=== PATIENT | male | born 1970 | race African-American/Black ===

== ENCOUNTER 2017-06-15 10:54 | Observation (INO) | payer OTHER ==
[2017-06-15] MEDS ORDERED: SODIUM CHLORIDE 0.9% 500 ML IV STA (11:08)
[2017-06-15] MEDS ORDERED: ONDANSETRON 4 MG/2 ML VIAL IVP STA (11:08)
[2017-06-15] MEDS ORDERED: RX INFO: IV CONTRAST WAS GIVEN 1 EACH MISC MISCELLANE PRN (11:08)
[2017-06-15] MEDS ORDERED: DIPH,PERTUS(ACELL)TETVAC-LF 0.5 ML VIAL IM ONE (11:08)
[2017-06-15] MEDS ORDERED: MORPHINE SULFATE 4 MG/ML SYRINGE IVP STA (11:11)
[2017-06-15] MEDS ORDERED: KETAMINE 10 MG/ML 20 ML VIAL IV PRN (11:11)
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
[2017-06-15] MEDS ORDERED: LORazepam 2 MG/ML INJ IV STA (11:36)
--- NOTE | 2017-06-15 12:26 | CT ---
EXAMINATION TYPE: CT ChestAbdPelvis w con DATE OF EXAM: 06/15/2017 COMPARISON: NONE HISTORY: Run over CT DLP: 1303 mGycm Automated exposure control for dose reduction was used. TECHNIQUE: Helical acquisition through the chest, abdomen and pelvis was obtained without oral contra st but following the intravenous administration of 100 mL of Omnipaque 300. The data was formatted i n the axial, coronal and sagittal projections. FINDINGS: There is minimal dependent atelectasis in the dependent portions of the lungs. There is a 1 .6 cm bleb or pneumatocele in the left lung base. There is no evidence of lung contusion or pneumotho rax. There is no significant axillary, mediastinal or hilar adenopathy. There is no pleural or pericardial fluid. The heart is upper limits of normal in size. Within the abdomen, there is significant streak artifact secondary patient's arm position. The liver, spleen and gallbladder appear normal. There is a small hiatal hernia. Both adrenal glands appear normal. Both kidneys demonstrate function and appear morphologically normal. Limited views of the pancreas are unremarkable. There is a 2.5 cm ring calcified lesion adjacent to t he tail of the pancreas. This may relate to previous trauma or inflammation. There is no significant retroperitoneal, iliac or inguinal adenopathy. The bladder is unremarkable. There is no significant diverticular change and there is no radiographic evidence of diverticulitis. The appendix is normal. Small bowel loops are normal. No free air and no free fluid is seen. No pelvic fracture is seen. No spinal fracture is identified. There are old fractures of the left fourth through seventh ribs no acute rib fracture is seen. IMPRESSION: 1. NO ACUTE POSTTRAUMATIC ABNORMALITY. 2. SMALL BLEB OR PNEUMATOCELE LEFT LUNG BASE. 3. RING CALCIFIED LESION ADJACENT TO THE TAIL OF PANCREAS ETIOLOGY OF WHICH IS UNCERTAIN. 4. OLD LEFT-SIDED RIB FRACTURES. 5. SMALL HIATAL HERNIA.
--- NOTE | 2017-06-15 12:34 | CT ---
EXAMINATION TYPE: CT brain estee mckee con DATE OF EXAM: 06/15/2017 COMPARISON: NONE HISTORY: Run over CT DLP: 2266 mGycm Automated exposure control for dose reduction was used. TECHNIQUE: CT scan of the head and cervical spine are performed without contrast. FINDINGS: BRAIN: Central structures are midline. There is no evidence of hydrocephalus. No acute focal lesion, mass effect or midline shift is seen. I do not see evidence of intracranial blood. There is mucoperio steal sinus disease involving both maxillary sinuses. The mastoids are clear. The bony calvarium is i ntact. IMPRESSION: 1. NO ACUTE INTRACRANIAL ABNORMALITY. 2. MILD, BILATERAL MAXILLARY SINUS DISEASE. CERVICAL SPINE: There are emphysematous changes throughout the lungs. There is aneurysmal dilatation of the proximal arch which measures 3.8 cm. Prevertebral soft tissues are otherwise unremarkable. Vertebral body height and alignment are maintained. Atlantoaxial relationships are normal. There is disc space loss and hypertrophic spondylosis most marked at C5-6 but present to lesser exten t C6-7. There is uncovertebral joint disease at this level. No fracture is seen. IMPRESSION: 1. NO ACUTE OSSEOUS LESION. 2. DEGENERATIVE CHANGE. 3. EMPHYSEMATOUS CHANGE. 4. ANEURYSMAL DILATATION OF THE ASCENDING THORACIC AORTA.
[2017-06-15 12:39] LABS: Basophils % (A) 0 %; Eosinophils # (A) 0.1 k/uL (0-0.7); Eosinophils % (A) 1 %; HCT 41.2 % (39.0-53.0); HGB 13.2 gm/dL (13.0-17.5); Lymphocytes # (A) 2.3 k/uL (1.0-4.8); Lymphocytes % (A) 23 %; MCH 32.1 pg (25.0-35.0); MCHC 32.1 g/dL (31.0-37.0); MCV 99.8 fL (80.0-100.0); Macrocytosis Slight; Mean Platelet Volume 7.4; Monocytes # (A) 0.4 k/uL (0-1.0); Monocytes % (A) 4 %; Neutrophils % (A) 70 %; Platelet Count 330 k/uL (150-450); RBC 4.13 m/uL (4.30-5.90); RDW 14.2 % (11.5-15.5)
[2017-06-15 12:52] LABS: INR 1.1 (<1.2)
[2017-06-15 12:54] LABS: Partial Thromboplastin Time 19.4 sec (22.0-30.0)
[2017-06-15 12:56] LABS: ALT 22 U/L (21-72); AST 28 U/L (17-59); Albumin 4.2 g/dL (3.5-5.0); Alkaline Phosphatase 60 U/L (38-126); Anion Gap 18 mmol/L; Blood Urea Nitrogen 8 mg/dL (9-20); Calcium 8.6 mg/dL (8.4-10.2); Carbon Dioxide 23 mmol/L (22-30); Chloride 103 mmol/L (98-107); Glucose 95 mg/dL (74-99); Potassium 4.2 mmol/L (3.5-5.1); Sodium 144 mmol/L (137-145); Total Bilirubin 0.5 mg/dL (0.2-1.3); Total Protein 7.5 g/dL (6.3-8.2)
[2017-06-15 13:02] LABS: Creatine Kinase 244 U/L (55-170)
[2017-06-15 13:15] LABS: Creatine Kinase MB 1.5 ng/mL (0.0-2.4); Troponin I <0.012 ng/mL (0.000-0.034)
[2017-06-15 13:18] LABS: Alcohol 388 mg/dL
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
[2017-06-15] MEDS ORDERED: NALOXONE 0.4 MG/ML 1 ML VIAL IV PRN (15:25)
[2017-06-15] MEDS ORDERED: ACETAMINOPHEN TAB 500 MG TAB PO PRN (15:25)
[2017-06-15] MEDS ORDERED: MORPHINE SULFATE 4 MG/ML SYRINGE IV PRN (15:25)
[2017-06-15] MEDS ORDERED: PHENYTOIN SODIUM INJ 1,000 MG in SODIUM CHLORIDE 0.9% 100 ML IVPB STA (15:33)
[2017-06-15 15:59] LABS: Appearance,Urine Clear (Clear); Bilirubin,Urine Negative (Negative); Blood,Urine Trace (Negative); Color,Urine Yellow; Glucose,Urine (UA) Negative (Negative); Ketones,Urine Trace (Negative); Leukocyte Esterase,Urine Negative (Negative); Mucus,Urine Rare /hpf; Nitrite,Urine Negative (Negative); PH, Urine 5.5 (5.0-8.0); Protein,Urine Trace (Negative); RBC,Urine <1 /hpf (0-5); Urobilinogen,Urine <2.0 mg/dL (<2.0); WBC,Urine <1 /hpf (0-5)
[2017-06-15] MEDS ORDERED: PHENYTOIN SODIUM EXTENDED 100 MG CAP PO SCH (16:00)
[2017-06-15 16:08] LABS: Amphetamine Screen,Urine Not Detected (NotDetected); Barbiturate Screen,Urine Not Detected (NotDetected); Benzodiazepines Screen,Urine Not Detected (NotDetected); Cocaine Screen,Urine Not Detected (NotDetected); Methadone Screen, Urine Not Detected (NotDetected); Opiate Screen,Urine Detected (NotDetected); Oxycodone Screen, Urine Not Detected (NotDetected); Phencyclidine Screen,Urine Not Detected (NotDetected); Tricyclic Antidepressant,Urine Not Detected (NotDetected); Urn Cannabinoid Scrn Not Detected (NotDetected)
[2017-06-15] MEDS: ONDANSETRON 4 MG/2 ML VIAL IVP PRN (18:04)
[2017-06-15] MEDS: KETOROLAC 30 MG/ML 1 ML VIAL IVP PRN (18:06)
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
[2017-06-15] MEDS ORDERED: SODIUM CHLORIDE 0.9% 2,000 ML IV ONE (18:30)
[2017-06-15] MEDS: LORazepam 2 MG/ML INJ IV PRN (20:28)
[2017-06-15] MEDS: PHENYTOIN SODIUM EXTENDED 100 MG CAP PO SCH (20:38)
[2017-06-16] MEDS: KETOROLAC 30 MG/ML 1 ML VIAL IVP PRN ×2 (08:26→15:34)
[2017-06-16] MEDS: PHENYTOIN SODIUM EXTENDED 100 MG CAP PO SCH ×3 (08:27→20:01)
[2017-06-16] MEDS: NICOTINE 21MG/24HR PATCH TRANSDERM SCH (08:27)
[2017-06-16] MEDS ORDERED: HYDROcodone/APAP 7.5-325MG 1 EACH TAB PO PRN (09:06)
[2017-06-16] MEDS ORDERED: HYDROmorphone 0.5 MG/0.5 ML SYRINGE IVP PRN (09:07)
[2017-06-16] MEDS ORDERED: HYDROmorphone 2 MG/ML 1 ML SYRINGE IVP PRN (09:07)
[2017-06-16] MEDS ORDERED: HYDROmorphone 4 MG/ML 1 ML SYRINGE IVP PRN (09:37)
[2017-06-16] MEDS: HYDROcodone/APAP 7.5-325MG 1 EACH TAB PO PRN ×2 (09:47→17:13)
[2017-06-16] MEDS ORDERED: SODIUM CHLORIDE 0.9% 2,000 ML IV ONE (12:28)
[2017-06-16] MEDS ORDERED: HYDROmorphone 4 MG TABLET PO PRN (13:09)
[2017-06-16] MEDS ORDERED: HYDROmorphone 2 MG TAB PO PRN (13:13)
[2017-06-16 13:51] LABS: HCT 34.7 % (39.0-53.0); HGB 11.1 gm/dL (13.0-17.5); MCH 31.8 pg (25.0-35.0); MCHC 32.1 g/dL (31.0-37.0); Mean Platelet Volume 8.7; Platelet Count 268 k/uL (150-450); RBC 3.51 m/uL (4.30-5.90); RDW 14.2 % (11.5-15.5); WBC 5.6 k/uL (3.8-10.6)
[2017-06-16 13:56] LABS: Anion Gap 10 mmol/L; Blood Urea Nitrogen 4 mg/dL (9-20); Calcium 8.6 mg/dL (8.4-10.2); Carbon Dioxide 26 mmol/L (22-30); Chloride 100 mmol/L (98-107); Creatine Kinase 380 U/L (55-170); Glucose 105 mg/dL (74-99); Potassium 4.1 mmol/L (3.5-5.1); Sodium 136 mmol/L (137-145)
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
--- NOTE | 2017-06-16 15:46 | P.PN ---
Subjective Progress Note Date: 06/16/17 Patient seen and evaluated. He is more awake and alert today as yesterday he came in intoxicated. He reports pain primarily along the right knee. Family is at bedside. He is tolerating diet. He denies any abdominal pain. Upon questioning, he is open to education counselor regarding his alcoholism. Objective - Vital Signs Vital signs: Vital Signs Temp 98.5 F 06/16/17 12:00 Pulse 104 H 06/16/17 12:00 Resp 16 06/16/17 12:00 BP 146/77 06/16/17 12:00 Pulse Ox 98 06/16/17 12:00 Intake & Output 06/15/17 06/16/17 06/16/17 18:59 06:59 18:59 Output Total 550 Balance -550 Weight 95.254 kg Output: Urine 550 Other: Voiding Method Urinal Urinal - Exam GENERAL: Well developed and in no acute distress. Pleasant. HEENT: No sclera icterus. Extraocular movements grossly intact. Moist buccal mucosa. Head is atraumatic, normocephalic. Hears conversational speech. No nasal drainage. NECK: Supple without lymphadenopathy. No JV distention. CHEST: Non-labored respirations and equal bilateral excursions. CARDIOVASCULAR: Regular rate and rhythm. Palpable 2+ radial pulses. ABDOMEN: Soft, nontender. Nondistended. MUSCULOSKELETAL: Edema along the right knee. Well-perfused. NEUROLOGIC: No focal or lateralizing signs. PSYCH: Appropriate affect. Alert and oriented to person, place and time. SKIN: Good skin turgor. Well perfused. - Labs CBC & Chem 7: 06/16/17 06:50 06/16/17 13:22 Labs: Abnormal Lab Results - Last 24 Hours (Table) 06/15/17 06/15/17 06/16/17 Range/Units 15:40 18:35 06:50 RBC 3.51 L (4.30-5.90) m/uL Hgb 11.1 L (13.0-17.5) gm/dL Hct 34.7 L (39.0-53.0) % Sodium (137-145) mmol/L BUN (9-20) mg/dL Creatinine (0.66-1.25) mg/dL Glucose (74-99) mg/dL Creatine Kinase (55-170) U/L CK-MB (CK-2) 4.3 H* (0.0-2.4) ng/mL Ur Specific [place] 1.050 H (1.001-1.035) Urine Protein Trace H (Negative) Urine Ketones Trace H (Negative) Urine Blood Trace H (Negative) Urine Mucus Rare H (None) /hpf Urine Opiates Screen Detected H (NotDetected) 06/16/17 Range/Units 13:22 RBC (4.30-5.90) m/uL Hgb (13.0-17.5) gm/dL Hct (39.0-53.0) % Sodium 136 L (137-145) mmol/L BUN 4 L (9-20) mg/dL Creatinine 0.61 L (0.66-1.25) mg/dL Glucose 105 H (74-99) mg/dL Creatine Kinase 380 H (55-170) U/L CK-MB (CK-2) (0.0-2.4) ng/mL Ur Specific [place] (1.001-1.035) Urine Protein (Negative) Urine Ketones (Negative) Urine Blood (Negative) Urine Mucus (None) /hpf Urine Opiates Screen (NotDetected) Assessment and Plan (1) Acute alcohol intoxication Current Visit: Yes Status: Acute Code(s): F10.929 - ALCOHOL USE, UNSPECIFIED WITH INTOXICATION, UNSPECIFIED SNOMED Code(s): 82736772 (2) Leg injury Current Visit: Yes Status: Acute Priority: Medium Code(s): S89.90XA - UNSPECIFIED INJURY OF UNSPECIFIED LOWER LEG, INIT ENCNTR SNOMED Code(s): 767283820 Plan: 1. On computed tomography scan, questionable dilated thoracic aneurysm identified. Will consult cardiothoracic team for further evaluation. 2. Orthopedic consultation obtained for persistent knee injury for which MRI is pending. 3. In-house counseling for drug abuse and alcohol abuse. 4. Full inpatient hospitalization.
[2017-06-16] MEDS: ONDANSETRON 4 MG/2 ML VIAL IVP PRN (16:47)
[2017-06-16] MEDS: HEPARIN SODIUM,PORCINE 5,000 UNIT/ML 1 ML VIAL SQ SCH ×2 (17:22→21:41)
[2017-06-16 19:26] VITALS: RESP 16
[2017-06-16] MEDS: DIVALPROEX 500 MG TABLET.DR PO SCH (20:01)
[2017-06-16] MEDS: LISINOPRIL 20 MG TAB PO SCH (20:01)
[2017-06-16] MEDS: LORazepam 2 MG/ML INJ IV PRN (21:40)
[2017-06-16] MEDS ORDERED: cloNIDine HCL 0.1 MG TAB PO PRN (23:02)
[2017-06-16] MEDS ORDERED: LISINOPRIL 20 MG TAB PO SCH (23:15)
[2017-06-16] MEDS: cloNIDine HCL 0.1 MG TAB PO SCH (23:27)
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
[2017-06-17] MEDS: KETOROLAC 30 MG/ML 1 ML VIAL IVP PRN (03:59)
[2017-06-17] MEDS: LORazepam 2 MG/ML INJ IV PRN ×2 (04:00→06:45)
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
[2017-06-17] MEDS: NICOTINE 21MG/24HR PATCH TRANSDERM SCH (08:41)
[2017-06-17] MEDS: HYDROcodone/APAP 7.5-325MG 1 EACH TAB PO PRN (08:42)
[2017-06-17] MEDS: cloNIDine HCL 0.1 MG TAB PO SCH (08:42)
[2017-06-17] MEDS: DIVALPROEX 500 MG TABLET.DR PO SCH (08:42)
[2017-06-17] MEDS: HEPARIN SODIUM,PORCINE 5,000 UNIT/ML 1 ML VIAL SQ SCH (08:42)
[2017-06-17] MEDS: PHENYTOIN SODIUM EXTENDED 100 MG CAP PO SCH (08:43)
[2017-06-17] MEDS: LISINOPRIL 20 MG TAB PO SCH (08:43)
[2017-06-17 08:46] VITALS: BP 145/84; PULSE 99; TEMP 98.3
--- NOTE | 2017-06-17 08:51 | MR ---
EXAMINATION TYPE: MR knee RT wo con DATE OF EXAM: 06/17/2017 COMPARISON: NONE HISTORY: right knee effusion s/p trauma TECHNIQUE: Multiplanar, multisequence imaging of the right knee is performed without IV contrast. FINDINGS: MEDIAL MENISCUS: Anterior and posterior horns are intact without tear. LATERAL MENISCUS: Small radial tear is seen in the body of the medial meniscus with adjacent inferior 0.5 x 0.8 cm meniscal cyst. CRUCIATE LIGAMENTS: The posterior cruciate ligaments are intact and unremarkable. There is a partial thickness tear of the anterior fibers of the anterior cruciate ligament with undulation of the fibers . COLLATERAL LIGAMENTS: The medial collateral ligament is intact despite the extensive soft tissue swel ling overlying both the medial and lateral collateral ligaments. Arcuate ligament is torn and there i s increased signal at the insertion of the lateral collateral ligament complex indicating low-grade s prain. EXTENSOR MECHANISM: Visualized quadriceps and patellar tendons are intact although there is increased signal at the insertion of the quadriceps tendon from low-grade strain. EFFUSION: Moderate joint effusion is seen with few foci of internal debris is on axial fat sat PD im age 13 medially from hemosiderin and a very small fat fluid level on coronal nonfat sat sagittal imag e 19 indicating a lipohemarthrosis. POPLITEAL CYST: No popliteal/leon cyst. CARTILAGE: Fissuring is seen at the medial weightbearing surface of the medial femoral condyle on cor onal fat-sat PD series 21 without focal partial or full-thickness tear. Small osteophyte is seen in t he anterior lateral femoral condyle although the cartilage appears intact. Patellofemoral cartilage h as mild signal heterogeneity in the trochlea and lateral facet without focal full-thickness or partia l-thickness defect. BONE MARROW SIGNAL: Bone marrow edema and a linear hypointense T1 are obliquely oriented nondisplaced fracture seen through the fibular head that appears noncomminuted. Small amount of bone marrow edema is also seen in the posterior lateral corner of the tibia without seen fracture line. IMPRESSION: 1. Partial-thickness ACL tear of the anterior fibers. 2. Nondisplaced obliquely oriented fibular head fracture appearing noncomminuted with surrounding bon e marrow edema. 3. Moderate complex joint effusion with component of lipohemarthrosis and foci of internal hemosideri n. 4. Focal mild bone marrow edema in the posterior lateral corner of the tibia without identifiable tib ial fracture. 5. Small radial tear of the body of the medial meniscus with 0.5 x 0.8 cm parameniscal cyst. 6. Full-thickness arcuate ligament tear and low-grade insertional fiber sprain of the lateral collate ral ligament complex. 7. Low-grade quadriceps insertional tendon strain. 8. Mild bicompartmental chondrosis.
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
== END 2017-06-17 13:08 | disposition home or self-care (01) ==
LOC: EC 10:54 → 3OBS 15:25
PROVIDERS: ADMIT Surgery Plastic and Reconstructive Surgery; ATTEND Surgery Plastic and Reconstructive Surgery
DX: F10.231 Alcohol dependence with withdrawal delirium (principal); I71.2 Thoracic aortic aneurysm, without rupture; S83.511A Sprain of anterior cruciate ligament of right knee, initial encounter; M25.461 Effusion, right knee; I10 Essential (primary) hypertension; G40.909 Epilepsy, unspecified, not intractable, without status epilepticus; F17.200 Nicotine dependence, unspecified, uncomplicated; X58.XXXA Exposure to other specified factors, initial encounter; Y90.8 Blood alcohol level of 240 mg/100 ml or more; Z79.899 Other long term (current) drug therapy; Z23 Encounter for immunization
CPT/HCPCS: 96375 ×6; 96361 ×5; 90471 ×2; 96365 ×2; 99152 ×2; 99153 ×2; 96372 ×2; 96376 ×3; 99291; 36415; 93005; 80053; 80048; 82550 ×2; 82553; 80185; 84484; 85025; 85027; 85610; 85730; 81001; 80306; 80320; 72170; 73502; 73552; 73590; 71045; 72125; 70450; 71260; 74177; 73721; 90715; G0378 ×3; L1830; S4990 ×2; J2060 ×3; J2270 ×2; J1165; J1644 ×2; J2405 ×2; J1885 ×3; Q9967; J1170